=== PATIENT | female | born 1935 | race Caucasian/White ===

== ENCOUNTER 2018-02-25 12:45 | Inpatient (IN) | payer MEDICARE, BC ==
[2018-02-25] MEDS ORDERED: Albuterol 0.083% 2.5 MG/3 ML Neb Soln NEB PRN (13:30)
[2018-02-25] MEDS ORDERED: Ibuprofen 600 MG Tab PO PRN (13:30)
[2018-02-25] MEDS ORDERED: Ondansetron 4 MG Tab.DIS PO PRN (13:30)
[2018-02-25] MEDS ORDERED: Polyethylene Glycol 3350 Powder 17 GM Packet PO PRN (13:30)
[2018-02-25] MEDS ORDERED: Sodium Chloride 0.9% 10 ML Syringe FLUSH PRN (13:30)
[2018-02-25] MEDS ORDERED: guaiFENesin/Dextromethorphan 100-10 MG/5 ML Soln 10 ML Cup PO PRN (13:34)
--- NOTE | 2018-02-25 13:43 | PCM.HP ---
H&P History of Present Illness - General Date of Service: 02/25/18 Admit Problem/Dx: Admission Diagnosis/Problem Admission Diagnosis/Problem Acute bronchitis Source of Information: Patient, Provider History Limitations: Reports: No Limitations - History of Present Illness Initial Comments - Free Text/Narative: Carla initially presented to the clinic with one week of cough, shortness of breath and progressive weakness. She reports initial symptoms were mostly a mild cough which slowly has gotten worse. She is producing some yellow and/or clear sputum at times. Shortness of breath has been slowly progressive and gets worse with any sort of activity. She thinks maybe she had some subjective fevers early on. She had a mild sore throat at the onset of symptoms but no longer has this. She is becoming very weak and having more difficulty performing her ADLs. She hasn't had much to eat in the past few days but has done okay with water intake. No complaints of chest pain, abdominal pain or nausea. Bowels have been on the slow side with her last bowel movement 2 days ago. No lower extremity edema or orthopnea. Workup in the clinic revealed a clear chest x-ray other than some chronic interstitial changes. White count was mildly elevated. She was hypoxic after even a very short walk though she had normal oxygen saturations while she had been sitting for several minutes. She was sent for admission with hypoxia and presumed bronchitis. Generalized Pain Score (Numeric/FACES): 4 4 Pain Score (Numeric/FACES): 4 - Related Data Allergies/Adverse Reactions: Allergies Allergy/AdvReac Type Severity Reaction Status Date / Time Penicillins Allergy Cannot Verified 07/25/13 13:10 Remember red dye Allergy Cannot Verified 07/25/13 13:09 Remember Home Medications: Home Meds Aspirin [Adult Low Dose Aspirin EC] 81 mg PO DAILY 07/25/13 [History] Lovastatin [Mevacor] 40 mg PO DAILY 07/25/13 [History] Multivitamin with Minerals [Multiple Vitamin] 1 tab PO DAILY 07/25/13 [History] Omeprazole 40 mg PO DAILY 07/25/13 [History] Triamcinolone Acetonide [Kenalog 0.1% Crm] 1 applic TOP BID PRN 07/25/13 [ History] Zoledronic Acid in Water [Reclast] 5 mg IV ASDIRECTED 02/25/18 [History] Past Medical History Gastrointestinal History: Reports: GERD Musculoskeletal History: Reports: Back Pain, Chronic, Fracture, Osteoporosis, Other (See Below) Other Musculoskeletal History: L radial fx Endocrine/Metabolic History: Reports: Osteoporosis - Past Surgical History Head Surgeries/Procedures: Reports: None HEENT Surgical History: Reports: Cataract Surgery GI Surgical History: Reports: Hernia, Inguinal Female Surgical History: Reports: None Endocrine Surgical History: Reports: None Social & Family History - Family History Respiratory: Denies: COPD - Tobacco Use Smoking Status *Q: Current Every Day Smoker Years of Tobacco use: 60 Packs/Tins Daily: 0.4 Used Tobacco, but Quit: No Second Hand Smoke Exposure: No - Caffeine Use Caffeine Use: Reports: Coffee - Alcohol Use Days Per Week of Alcohol Use: 7 Number of Drinks Per Day: 3 Total Drinks Per Week: 21 - Recreational Drug Use Recreational Drug Use: No H&P Review of Systems - Review of Systems: Review Of Systems: See Below Free Text/Narrative: A complete 12 point review of systems was obtained. Pertinent positives and negatives are noted in the history of present illness. All other systems were reviewed and are negative except as noted. Exam - Exam Exam: See Below - Vital Signs Vital Signs: Last Vital Signs Temp 37.7 C 02/25/18 12:58 Pulse 68 02/25/18 12:58 Resp 20 02/25/18 12:58 BP 124/56 L 02/25/18 12:58 Pulse Ox 94 L 02/25/18 12:58 Weight: 58.513 kg - Exam Quality Assessment: No: Supplemental Oxygen General: Alert, Oriented, Cooperative. No: Mild Distress HEENT: No: Mucosa Moist & [place] (dry), Scleral Icterus Neck: Supple, Trachea Midline. No: Lymphadenopathy Lungs: Rhonchi (mild upper resp ). No: Normal Respiratory Effort (increased work of breathing ), Wheezing Cardiovascular: Regular Rate, Regular Rhythm GI/Abdominal Exam: Soft, Non-Tender, No Distention Extremities: No Pedal Edema. No: Increased Warmth Peripheral Pulses: 2+: Dorsalis Pedis (L), Dorsalis Pedis (R) Skin: Warm, Dry Neuro Extensive - Mental Status: Alert, Oriented x3, Nl Response to Commands Neuro Extensive - Motor, Sensory, Reflexes: CN II-XII Intact. No: Dysarthria, Abnormal Motor, Tremor Psychiatric: Alert, Normal Affect - Patient Data Imaging Impressions Last 24 hrs: CXR - mild bilateral chronic interstitial changes noted. No definite infiltrate. Heart size is normal. *Q Meaningful Use (ADM) - VTE Risk Assess *Q Each Risk Factor Represents 1 Point: Abnormal Pulmonary Function (COPD) Total Score 1 Point Risk Factors: 1 Each Risk Factor Represents 2 Points: None Total Score 2 Point Risk Factors: 0 Each Risk Factor Represents 3 Points: Age 75 Years or Greater Total Score 3 Point Risk Factors: 3 Each Risk Factor Represents 5 Points: None Total Score 5 Point Risk Factors: 0 Venous Thromboembolism Risk Factor Score *Q: 4 - Problem List (1) Acute bronchitis SNOMED Code(s): 29681490 ICD Code: J20.9 - ACUTE BRONCHITIS, UNSPECIFIED Status: Acute Current Visit: Yes Qualifiers: Bronchitis organism: unspecified organism Qualified Code(s): J20.9 - Acute bronchitis, unspecified (2) Acute respiratory failure with hypoxia SNOMED Code(s): 40983693, 410098756 ICD Code: J96.01 - ACUTE RESPIRATORY FAILURE WITH HYPOXIA Status: Acute Current Visit: Yes (3) Tobacco dependence SNOMED Code(s): 90360215 ICD Code: F17.200 - NICOTINE DEPENDENCE, UNSPECIFIED, UNCOMPLICATED Status : Chronic Current Visit: Yes Problem List Initiated/Reviewed/Updated: Yes Orders Last 24hrs: Active Orders 24 hr Category Date Time Status Patient Status [ADT] Routine ADT 02/25/18 13:30 Ordered Antiembolic Devices [RC] .Routine Care 02/25/18 13:30 Ordered Dietary Supplements [RC] BIDMEALS Care 02/25/18 13:35 Ordered Intake and Output [RC] QSHIFT Care 02/25/18 13:31 Ordered Notify Provider Vital Signs [RC] ASDIRECTED Care 02/25/18 13:31 Ordered Oxygen Therapy [RC] PRN Care 02/25/18 13:30 Ordered Peripheral IV Care [RC] . DIRECTED Care 02/25/18 13:32 Ordered RT Aerosol Therapy [RC] ASDIRECTED Care 02/25/18 13:33 Ordered Up With Assistance [RC] ASDIRECTED Care 02/25/18 13:30 Ordered VTE/DVT Education [RC] Per Unit Routine Care 02/25/18 13:30 Ordered Vital Signs [RC] Q4H Care 02/25/18 13:30 Ordered Regular Diet [DIET] Diet 02/25/18 Dinner Ordered BASIC METABOLIC PANEL,BMP [CHEM] AM Lab 02/26/18 05:11 Ordered CBC W/O DIFF,HEMOGRAM [HEME] AM Lab 02/26/18 05:11 Ordered CULTURE RESPIRATORY + SMEAR [RM] Routine Lab 02/25/18 13:30 Ordered Acetaminophen [Tylenol] Med 02/25/18 13:30 Ordered 650 mg PO Q4H PRN Albuterol [Proventil Neb Soln] Med 02/25/18 13:30 Ordered 2.5 mg NEB Q4H PRN Albuterol/Ipratropium [DuoNeb 3.0-0.5 MG/3 ML] Med 02/25/18 16:00 Ordered 3 ml NEB QID Aspirin [Halfprin] Med 02/26/18 09:00 Ordered 81 mg PO DAILY Azithromycin [Zithromax] Med 02/26/18 09:00 Ordered 250 mg PO DAILY Azithromycin [Zithromax] 500 mg Med 02/25/18 13:34 Ordered Sodium Chloride 0.9% [Normal Saline] 250 ml IV ONETIME Benzonatate [Tessalon Perles] Med 02/25/18 13:34 Ordered 100 mg PO TID PRN Dextromethorphan/guaiFENesin [Robitussin DM] Med 02/25/18 13:34 Ordered 10 ml PO Q4H PRN Docusate Sodium/Sennosides [Senna Plus] Med 02/25/18 13:30 Ordered 1 tab PO BID PRN Ibuprofen [Motrin] Med 02/25/18 13:30 Ordered 600 mg PO Q6H PRN Lovastatin [Mevacor] Med 02/26/18 09:00 Ordered 40 mg PO DAILY Multivitamin with Minerals [Multiple Vitamin] Med 02/26/18 09:00 Ordered 1 tab PO DAILY Ondansetron [Zofran ODT] Med 02/25/18 13:30 Ordered 4 mg PO Q6H PRN Pantoprazole [ProTONIX] Med 02/26/18 09:00 Ordered 40 mg PO DAILY Polyethylene Glycol 3350 [MiraLAX] Med 02/25/18 13:30 Ordered 17 gm PO DAILY PRN Sodium Chloride 0.9% [Normal Saline] 1,000 ml Med 02/25/18 13:45 Ordered IV ASDIRECTED Sodium Chloride 0.9% [Saline Flush] Med 02/25/18 13:30 Ordered 10 ml FLUSH ASDIRECTED PRN cefTRIAXone [Rocephin] 1 gm Med 02/25/18 13:45 Ordered Sodium Chloride 0.9% [Normal Saline] 50 ml IV Q24H Peripheral IV Insertion Adult [OM.PC] Routine Oth 02/25/18 13:30 Ordered Sequential Compression Device [OM.PC] Per Unit Routine Oth 02/25/18 13:31 Ordered Resuscitation Status Routine Resus Stat 02/25/18 13:30 Ordered Medication Orders Acetaminophen (Tylenol) 650 mg PO Q4H PRN PRN Reason: Pain (Mild 1-3)/fever Albuterol (Proventil Neb Soln) 2.5 mg NEB Q4H PRN PRN Reason: Shortness Of Breath/wheezing Albuterol/Ipratropium (Duoneb 3.0-0.5 Mg/3 Ml) 3 ml NEB QID JOSE Azithromycin (Zithromax) 250 mg PO DAILY JOSE Benzonatate (Tessalon Perles) 100 mg PO TID PRN PRN Reason: Cough Guaifenesin/Dextromethorphan (Robitussin Dm) 10 ml PO Q4H PRN PRN Reason: Cough Azithromycin 500 mg/ Sodium (Chloride) 250 mls @ 250 mls/hr IV ONETIME ONE Stop: 02/25/18 14:33 Ceftriaxone Sodium 1 gm/ (Sodium Chloride) 50 mls @ 100 mls/hr IV Q24H JOSE Sodium Chloride (Normal Saline) 1,000 mls @ 125 mls/hr IV ASDIRECTED JOSE Ibuprofen (Motrin) 600 mg PO Q6H PRN PRN Reason: Muscle pain or fever Ondansetron HCl (Zofran Odt) 4 mg PO Q6H PRN PRN Reason: Nausea able to take PO Polyethylene Glycol (Miralax) 17 gm PO DAILY PRN PRN Reason: Constipation Senna/Docusate Sodium (Senna Plus) 1 tab PO BID PRN PRN Reason: Constipation Sodium Chloride (Saline Flush) 10 ml FLUSH ASDIRECTED PRN PRN Reason: Keep Vein Open Assessment/Plan Comment:: ASSESSMENT AND PLAN - Acute bronchitis with hypoxic respiratory failure - chest x-ray did not suggest pneumonia. Current symptoms include cough, shortness of breath and dyspnea with any exertion. She has hypoxic with any activity and not safe for outpatient management. No evidence for sepsis. No recent antibiotics. she has mild leukocytosis on laboratory testing. -Ceftriaxone and azithromycin -Hold on steroids at this time with no wheezing -Scheduled and as needed nebulizers -Symptomatic cough management -Sputum culture if able Tobacco dependence - patient has been slowly decreasing her intake and did quit for 1 year several years ago but has not been abstinent. -Continue to encourage cessation Maintenance issues - - DVT prophylaxis - mechanical - GI prophylaxis - not indicated - Nutrition - regular - Avila catheter - not indicated CODE STATUS - DNR/DNI Admission justification - the patient will be admitted to inpatient status with the idea that her hospital stay will span at least 2 midnights but that she can be safely treated and discharged and 96 hours or less of the disease runs its usual course. Disposition - I would anticipate discharge to home, possibly with home care after the hospital stay Primary care physician - Dr. Fahad Amin M.D.
[2018-02-25] MEDS: Sodium Chloride 0.9% 1,000 ML IV SCH ×2 (13:56→23:46)
[2018-02-25] MEDS: cefTRIAXone 1 GM in Sodium Chloride 0.9% 50 ML IV SCH (14:49)
[2018-02-25] MEDS ORDERED: Azithromycin 500 MG in Sodium Chloride 0.9% 250 ML IV ONE (15:00)
[2018-02-25] MEDS: Albuterol/Ipratropium 3.0-0.5 MG/3 ML Neb Soln NEB SCH ×2 (15:21→21:22)
[2018-02-25] MEDS: Benzonatate 100 MG Cap PO PRN (17:16)
[2018-02-25] MEDS: Acetaminophen 325 MG Tab PO PRN (21:26)
[2018-02-26] MEDS: Albuterol/Ipratropium 3.0-0.5 MG/3 ML Neb Soln NEB SCH ×4 (07:12→21:22)
[2018-02-26] MEDS: Sodium Chloride 0.9% 1,000 ML IV SCH (07:54)
[2018-02-26] MEDS: Aspirin 81 MG Tab.EC PO SCH (08:01)
[2018-02-26] MEDS: Multivitamins with Iron/Calcium/Folic Acid/Minerals Tab PO SCH (08:01)
[2018-02-26] MEDS: Azithromycin 250 MG Tab PO SCH (08:01)
[2018-02-26] MEDS: Pantoprazole 40 MG Tab.CR PO SCH (08:01)
[2018-02-26] MEDS ORDERED: LOVASTATIN 40 MG PO SCH (09:00)
[2018-02-26] MEDS ORDERED: Non-Formulary Medication 1 Each (Multivitamin With Minerals [Multiple Vitamin] 1 TAB) PO SCH (09:00)
--- NOTE | 2018-02-26 11:45 | PCM.PN ---
- General Info Date of Service: 02/26/18 Subjective Update: There were no acute events overnight. Patient did have a low-grade fever elevation. She feels less short of breath today but still is coughing a fair amount. Still does get short of breath with activity. She has been able to ambulate to the bathroom and back. She has not required any supplemental oxygen. She has some left-sided chest pain with coughing. Appetite not great but a little better today. Gram stain on the sputum sample revealed some gram- positive cocci but identification is pending. Functional Status: Reports: Pain Controlled, Tolerating Diet - Review of Systems General: Reports: Fever, Weakness Pulmonary: Reports: Shortness of Breath, Cough - Patient Data Vitals - Most Recent: Last Vital Signs Temp 37.0 C 02/26/18 11:26 Pulse 64 02/26/18 11:26 Resp 16 02/26/18 11:26 BP 136/60 02/26/18 11:26 Pulse Ox 90 L 02/26/18 11:26 Weight - Most Recent: 58.513 kg I&O - Last 24 Hours: Intake & Output 02/25/18 02/26/18 02/26/18 22:59 06:59 14:59 Intake Total 1056 1358 120 Balance 1056 1358 120 Lab Results Last 24 Hours: Laboratory Results - last 24 hr 02/26/18 02/26/18 Range/Units 05:00 05:11 WBC 10.0 (4.5-11.0) K/uL RBC 3.37 (3.30-5.50) M/uL Hgb 10.4 L (12.0-15.0) g/dL Hct 31.3 L (36.0-48.0) % MCV 93 (80-98) fL MCH 31 (27-31) pg MCHC 33 (32-36) % Plt Count 264 (150-400) K/uL Sodium 132 L (140-148) mmol/L Potassium 3.8 (3.6-5.2) mmol/L Chloride 101 (100-108) mmol/L Carbon Dioxide 22 (21-32) mmol/L Anion Gap 12.8 (5.0-14.0) mmol/L BUN 9 (7-18) mg/dL Creatinine 0.7 (0.6-1.0) mg/dL Est Cr Clr Drug Dosing 50.37 mL/min Estimated GFR (MDRD) > 60 (>60) Glucose 95 (74-106) mg/dL Calcium 8.5 (8.5-10.1) mg/dL Abdoulaye Results Last 24 Hours: Microbiology 02/25/18 19:18 Gram Stain - Final Sputum - Expectorated Med Orders - Current: Current Medications Acetaminophen (Tylenol) 650 mg PO Q4H PRN PRN Reason: Pain (Mild 1-3)/fever Last Admin: 02/25/18 21:26 Dose: 650 mg Albuterol (Proventil Neb Soln) 2.5 mg NEB Q4H PRN PRN Reason: Shortness Of Breath/wheezing Albuterol/Ipratropium (Duoneb 3.0-0.5 Mg/3 Ml) 3 ml NEB QIDRT [facility] Last Admin: 02/26/18 10:53 Dose: 3 ml Aspirin (Halfprin) 81 mg PO DAILY [facility] Last Admin: 02/26/18 08:01 Dose: 81 mg Azithromycin (Zithromax) 250 mg PO DAILY [facility] Last Admin: 02/26/18 08:01 Dose: 250 mg Benzonatate (Tessalon Perles) 100 mg PO TID PRN PRN Reason: Cough Last Admin: 02/25/18 17:16 Dose: 100 mg Ceftriaxone Sodium 1 gm/ (Sodium Chloride) 50 mls @ 100 mls/hr IV Q24H [facility] Last Admin: 02/25/18 14:49 Dose: 100 mls/hr Sodium Chloride (Normal Saline) 1,000 mls @ 125 mls/hr IV ASDIRECTED [facility] Last Admin: 02/26/18 07:54 Dose: 125 mls/hr Ibuprofen (Motrin) 600 mg PO Q6H PRN PRN Reason: Muscle pain or fever Lovastatin (Mevacor) 40 mg PO DAILY [facility] Last Admin: 02/26/18 08:01 Dose: 40 mg Multivitamins/Minerals (Thera M Plus) 1 tab PO DAILY [facility] Last Admin: 02/26/18 08:01 Dose: 1 tab Ondansetron HCl (Zofran Odt) 4 mg PO Q6H PRN PRN Reason: Nausea able to take PO Pantoprazole Sodium (Protonix) 40 mg PO ACBREAKFAST [facility] Last Admin: 02/26/18 08:01 Dose: 40 mg Polyethylene Glycol (Miralax) 17 gm PO DAILY PRN PRN Reason: Constipation Senna/Docusate Sodium (Senna Plus) 1 tab PO BID PRN PRN Reason: Constipation Sodium Chloride (Saline Flush) 10 ml FLUSH ASDIRECTED PRN PRN Reason: Keep Vein Open Discontinued Medications Guaifenesin/Dextromethorphan (Robitussin Dm) 10 ml PO Q4H PRN PRN Reason: Cough Last Admin: 02/25/18 17:16 Dose: 10 ml Azithromycin 500 mg/ Sodium (Chloride) 250 mls @ 250 mls/hr IV ONETIME ONE Stop: 02/25/18 15:59 Last Admin: 02/25/18 15:43 Dose: 250 mls/hr - Exam Quality Assessment: No: Supplemental Oxygen General: Alert, Oriented, Cooperative, No Acute Distress Lungs: Clear to Auscultation, Normal Respiratory Effort, Other (coughs with deep breathing ) Cardiovascular: Regular Rate, Regular Rhythm Extremities: No Pedal Edema Psy/Mental Status: Alert, Normal Affect - Problem List & Annotations (1) Acute bronchitis SNOMED Code(s): 90210038 Code(s): J20.9 - ACUTE BRONCHITIS, UNSPECIFIED Status: Acute Current Visit: Yes Qualifiers: Bronchitis organism: unspecified organism Qualified Code(s): J20.9 - Acute bronchitis, unspecified (2) Acute respiratory failure with hypoxia SNOMED Code(s): 61155046, 563473039 Code(s): J96.01 - ACUTE RESPIRATORY FAILURE WITH HYPOXIA Status: Acute Current Visit: Yes (3) Tobacco dependence SNOMED Code(s): 22649790 Code(s): F17.200 - NICOTINE DEPENDENCE, UNSPECIFIED, UNCOMPLICATED Status: Chronic Current Visit: Yes - Problem List Review Problem List Initiated/Reviewed/Updated: Yes - My Orders Last 24 Hours: My Active Orders 02/25/18 13:30 Patient Status [ADT] Routine Antiembolic Devices [RC] .Routine Oxygen Therapy [RC] PRN Up With Assistance [RC] ASDIRECTED VTE/DVT Education [RC] Per Unit Routine Vital Signs [RC] Q4H Acetaminophen [Tylenol] 650 mg PO Q4H PRN Albuterol [Proventil Neb Soln] 2.5 mg NEB Q4H PRN Docusate Sodium/Sennosides [Senna Plus] 1 tab PO BID PRN Ibuprofen [Motrin] 600 mg PO Q6H PRN Ondansetron [Zofran ODT] 4 mg PO Q6H PRN Polyethylene Glycol 3350 [MiraLAX] 17 gm PO DAILY PRN Sodium Chloride 0.9% [Saline Flush] 10 ml FLUSH ASDIRECTED PRN Peripheral IV Insertion Adult [OM.PC] Routine Resuscitation Status Routine 02/25/18 13:31 Intake and Output [RC] QSHIFT Notify Provider Vital Signs [RC] ASDIRECTED Sequential Compression Device [OM.PC] Per Unit Routine 02/25/18 13:32 Peripheral IV Care [RC] . DIRECTED 02/25/18 13:33 RT Aerosol Therapy [RC] ASDIRECTED 02/25/18 13:34 Benzonatate [Tessalon Perles] 100 mg PO TID PRN 02/25/18 13:35 Dietary Supplements [RC] BIDMEALS 02/25/18 13:45 Sodium Chloride 0.9% [Normal Saline] 1,000 ml IV ASDIRECTED 02/25/18 14:00 cefTRIAXone [Rocephin] 1 gm Sodium Chloride 0.9% [Normal Saline] 50 ml IV Q24H 02/25/18 15:00 Albuterol/Ipratropium [DuoNeb 3.0-0.5 MG/3 ML] 3 ml NEB QIDRT 02/25/18 19:18 CULTURE RESPIRATORY + SMEAR [RM] Routine 02/25/18 Dinner Regular Diet [DIET] 02/26/18 07:30 Pantoprazole [ProTONIX] 40 mg PO ACBREAKFAST 02/26/18 09:00 Aspirin [Halfprin] 81 mg PO DAILY Azithromycin [Zithromax] 250 mg PO DAILY Lovastatin [Mevacor] 40 mg PO DAILY Multivitamins w-Iron/Ca/FA/Min [Thera M Plus] 1 tab PO DAILY 02/26/18 11:44 Convert IV to Saline Lock [OM.PC] Routine 02/27/18 05:00 CBC W/O DIFF,HEMOGRAM [HEME] Timed (1) - Plan Plan:: ASSESSMENT AND PLAN - Acute bronchitis with hypoxic respiratory failure - chronically a little better but still significant coughing spells and short of breath with activity. She has not required supplemental oxygen since she arrived. She did have a low- grade fever overnight. Cultures are pending. -Ceftriaxone and azithromycin -Hold on steroids at this time with no wheezing -Scheduled and as needed nebulizers -Symptomatic cough management -Follow-up sputum culture Tobacco dependence - patient has been slowly decreasing her intake and did quit for 1 year several years ago but has not been abstinent. -Continue to encourage cessation Maintenance issues - - DVT prophylaxis - mechanical - GI prophylaxis - not indicated - Nutrition - regular Disposition - I would anticipate discharge to home, possibly with home care after the hospital stay likely tomorrow if stable overnight, Shakir Amin M.D.
[2018-02-26] MEDS: Benzonatate 100 MG Cap PO PRN ×2 (12:09→21:43)
[2018-02-26] MEDS: cefTRIAXone 1 GM in Sodium Chloride 0.9% 50 ML IV SCH (13:36)
[2018-02-26] MEDS: Acetaminophen 325 MG Tab PO PRN (21:42)
[2018-02-27] MEDS: Benzonatate 100 MG Cap PO PRN (02:18)
[2018-02-27] MEDS: Albuterol/Ipratropium 3.0-0.5 MG/3 ML Neb Soln NEB SCH ×2 (07:24→10:35)
[2018-02-27] MEDS: Azithromycin 250 MG Tab PO SCH (08:26)
[2018-02-27] MEDS: Multivitamins with Iron/Calcium/Folic Acid/Minerals Tab PO SCH (08:26)
[2018-02-27] MEDS: Pantoprazole 40 MG Tab.CR PO SCH (08:26)
[2018-02-27] MEDS: Aspirin 81 MG Tab.EC PO SCH (08:26)
--- NOTE | 2018-02-27 11:06 | PCM.DCSUM1 ---
Discharge Summary - Hospital Course Brief History: 82-year-old female with tobacco dependence who presented with cough, shortness of breath and weakness. She was admitted from the clinic for management of acute bronchitis with mild hypoxia and generalized weakness. Diagnosis: Stroke: No - Discharge Data Discharge Date: 02/27/18 Discharge Disposition: Home, [facility] Condition: Fair - Discharge Diagnosis/Problem(s) (1) Acute bronchitis SNOMED Code(s): 83437418 ICD Code: J20.9 - ACUTE BRONCHITIS, UNSPECIFIED Status: Acute Qualifiers: Bronchitis organism: unspecified organism Qualified Code(s): J20.9 - Acute bronchitis, unspecified (2) Acute respiratory failure with hypoxia SNOMED Code(s): 28345290, 383881980 ICD Code: J96.01 - ACUTE RESPIRATORY FAILURE WITH HYPOXIA Status: Acute (3) Tobacco dependence SNOMED Code(s): 67441836 ICD Code: F17.200 - NICOTINE DEPENDENCE, UNSPECIFIED, UNCOMPLICATED Status : Chronic - Patient Summary/Data Hospital Course: Carla presented to the clinic with cough, shortness of breath and weakness. Workup in the clinic was consistent with acute bronchitis and she did have hypoxia after a short period of ambulation. She was admitted to the hospital for further management. She was started on ceftriaxone and azithromycin at the time of admission. I did not start steroids because she was not wheezing. Over the first 24 hours there was mild improvement. She was not hypoxic and did not require any supplemental oxygen. She remained weak and fatigued but otherwise was clinically stable. She did have a low-grade fever about 24 hours after admission but otherwise has not been febrile. From day 1 today to which was the day of discharge the patient has had additional clinical improvement. She is feeling less short of breath and has been able to ambulate to the bathroom and back and take a shower without severe shortness of breath. She does have a fair amount of coughing with sputum and some of the coughing spells to cause increased shortness of breath. Sputum culture did not grow out any specific bacteria. White count has been normal. She is a little weak but otherwise safer hospital discharge. She was interested in home health care. She will be given a prescription for azithromycin and cefdinir as outlined in the medication section. We did also briefly discussed smoking cessation but she doesn't seem to have a lot of interest in quitting at this time. She will be following up early next week. - Patient Instructions Diet: Regular Diet as Tolerated Activity: As Tolerated Showering/Bathing: May Shower Notify Provider of: Fever, Increased Pain, Nausea and/or Vomiting Other/Special Instructions: 1. You were in the hospital for management of acute bronchitis with low oxygen numbers. Your condition has been improving with antibiotic therapy. I recommend additional antibiotic treatment with 2 different antibiotics. You should take azithromycin 250 mg once daily in the morning for 3 more doses. Your next dose is due tomorrow morning. You should also take cefdinir 300 mg capsules twice daily. Your next dose is due tonight. To help calm down her cough you may use the Tessalon Perles for which I provided a prescription. You can use these 3 times daily as needed. You can also use either a cough syrup with guaifenesin or a plain guaifenesin tablet to help loosen up the mucus and make clearing your mucus from your bronchial tubes easier. 2. Continue your other home medications as previously prescribed. 3. Follow up with Dr. Vásquez early next week. 4. Seek medical attention if you have fever greater than 101, severe shortness of breath or profound weakness that limit your activities of daily living. - Discharge Plan *PRESCRIPTION DRUG MONITORING PROGRAM REVIEWED*: Not Applicable *COPY OF PRESCRIPTION DRUG MONITORING REPORT IN PATIENT BECK: Not Applicable Prescriptions/Med Rec: Azithromycin [Zithromax] 250 mg PO DAILY #3 tablet Benzonatate 100 mg PO TID PRN #30 capsule PRN Reason: Cough Cefdinir 300 mg PO BID #10 capsule Home Medications: Home Meds Aspirin [Adult Low Dose Aspirin EC] 81 mg PO DAILY 07/25/13 [History] Lovastatin [Mevacor] 40 mg PO DAILY 07/25/13 [History] Multivitamin with Minerals [Multiple Vitamin] 1 tab PO DAILY 07/25/13 [History] Omeprazole 40 mg PO DAILY 07/25/13 [History] Triamcinolone Acetonide [Kenalog 0.1% Crm] 1 applic TOP BID PRN 07/25/13 [ History] Zoledronic Acid in Water [Reclast] 5 mg IV ASDIRECTED 02/25/18 [History] Azithromycin [Zithromax] 250 mg PO DAILY #3 tablet 02/27/18 [Rx] Benzonatate 100 mg PO TID PRN #30 capsule 02/27/18 [Rx] Cefdinir 300 mg PO BID #10 capsule 02/27/18 [Rx] Oxygen Therapy Mode: Room Air Patient Handouts: Cefdinir capsules, Acute Bronchitis, Adult, [id number], Azithromycin tablets Referrals: Michael Vásquez MD [Primary Care Provider] - (f/u in 5 days - f/u hospital stay for bronchitis ) - Discharge Summary/Plan Comment DC Time >30 min.: Yes (40 - coordinating home care) - Patient Data Vitals - Most Recent: Last Vital Signs Temp 36.9 C 02/27/18 07:45 Pulse 85 02/27/18 10:35 Resp 18 02/27/18 07:45 BP 131/52 L 02/27/18 07:45 Pulse Ox 92 L 02/27/18 10:35 Weight - Most Recent: 58.513 kg I&O - Last 24 hours: Intake & Output 02/26/18 02/27/18 02/27/18 22:59 06:59 14:59 Intake Total 1177 760 Balance 1177 760 Lab Results - Last 24 hrs: Laboratory Results - last 24 hr 02/27/18 Range/Units 05:00 WBC 9.8 (4.5-11.0) K/uL RBC 3.29 L (3.30-5.50) M/uL Hgb 10.6 L (12.0-15.0) g/dL Hct 30.5 L (36.0-48.0) % MCV 93 (80-98) fL MCH 32 H (27-31) pg MCHC 35 (32-36) % Plt Count 259 (150-400) K/uL ZAINAB Results - Last 24 hrs: Microbiology 02/25/18 19:18 Gram Stain - Final Sputum - Expectorated Respiratory Culture - Preliminary NORMAL RESPIRATORY PATTIE 1 DAY Med Orders - Current: Current Medications Acetaminophen (Tylenol) 650 mg PO Q4H PRN PRN Reason: Pain (Mild 1-3)/fever Last Admin: 02/26/18 21:42 Dose: 650 mg Albuterol (Proventil Neb Soln) 2.5 mg NEB Q4H PRN PRN Reason: Shortness Of Breath/wheezing Albuterol/Ipratropium (Duoneb 3.0-0.5 Mg/3 Ml) 3 ml NEB QIDRT JOSE Last Admin: 02/27/18 10:35 Dose: 3 ml Aspirin (Halfprin) 81 mg PO DAILY [facility] Last Admin: 02/27/18 08:26 Dose: 81 mg Azithromycin (Zithromax) 250 mg PO DAILY [facility] Last Admin: 02/27/18 08:26 Dose: 250 mg Benzonatate (Tessalon Perles) 100 mg PO TID PRN PRN Reason: Cough Last Admin: 02/27/18 02:18 Dose: 100 mg Ceftriaxone Sodium 1 gm/ (Sodium Chloride) 50 mls @ 100 mls/hr IV Q24H [facility] Last Admin: 02/26/18 13:36 Dose: 100 mls/hr Ibuprofen (Motrin) 600 mg PO Q6H PRN PRN Reason: Muscle pain or fever Last Admin: 02/26/18 17:03 Dose: 600 mg Lovastatin (Mevacor) 40 mg PO DAILY [facility] Last Admin: 02/27/18 08:26 Dose: 40 mg Multivitamins/Minerals (Thera M Plus) 1 tab PO DAILY [facility] Last Admin: 02/27/18 08:26 Dose: 1 tab Ondansetron HCl (Zofran Odt) 4 mg PO Q6H PRN PRN Reason: Nausea able to take PO Pantoprazole Sodium (Protonix) 40 mg PO ACBREAKFAST [facility] Last Admin: 02/27/18 08:26 Dose: 40 mg Polyethylene Glycol (Miralax) 17 gm PO DAILY PRN PRN Reason: Constipation Senna/Docusate Sodium (Senna Plus) 1 tab PO BID PRN PRN Reason: Constipation Sodium Chloride (Saline Flush) 10 ml FLUSH ASDIRECTED PRN PRN Reason: Keep Vein Open Discontinued Medications Guaifenesin/Dextromethorphan (Robitussin Dm) 10 ml PO Q4H PRN PRN Reason: Cough Last Admin: 02/25/18 17:16 Dose: 10 ml Azithromycin 500 mg/ Sodium (Chloride) 250 mls @ 250 mls/hr IV ONETIME ONE Stop: 02/25/18 15:59 Last Admin: 02/25/18 15:43 Dose: 250 mls/hr Sodium Chloride (Normal Saline) 1,000 mls @ 125 mls/hr IV ASDIRECTED [facility] Last Admin: 02/26/18 07:54 Dose: 125 mls/hr - Exam Quality Assessment: Denies: Supplemental Oxygen General: Reports: Alert, Oriented, Cooperative, No Acute Distress Lungs: Reports: Clear to Auscultation, Normal Respiratory Effort Cardiovascular: Reports: Regular Rate, Regular Rhythm GI/Abdominal Exam: Soft, No Distention Skin: Reports: Warm, Dry Psy/Mental Status: Reports: Alert, Normal Affect
[2018-02-27 11:14] VITALS: BP 123/50
== END 2018-02-27 12:33 | disposition home health service (06) | DRG 189 ==
LOC: JP.MS 12:45
PROVIDERS: ADMIT Internal Medicine; ATTEND Internal Medicine
DX: J96.01 Acute respiratory failure with hypoxia (principal); Z66 Do not resuscitate; R53.1 Weakness; F17.210 Nicotine dependence, cigarettes, uncomplicated; K21.9 Gastro-esophageal reflux disease without esophagitis; M81.0 Age-related osteoporosis without current pathological fracture; Z79.82 Long term (current) use of aspirin; Z88.0 Allergy status to penicillin; Z91.048 Other nonmedicinal substance allergy status
CPT/HCPCS: 36415; 80048; 85027; 87070; 87205; 94640; A9270-GY; J0456; J0696; J7030; J7050; J7620-GY

== ENCOUNTER 2020-06-23 11:31 | Emergency (ER) | payer BC, MEDICARE ==
--- NOTE | 2020-06-23 13:19 | EDM.PDOC ---
ED HPI GENERAL MEDICAL PROBLEM - General Chief Complaint: Headache Stated Complaint: HEADACHE SEEING DOUBLE Time Seen by Provider: 06/23/20 12:40 Source of Information: Reports: Patient, Family History Limitations: Reports: No Limitations - History of Present Illness INITIAL COMMENTS - FREE TEXT/NARRATIVE: 84-year-old female who has had some fairly persistent frontal headaches for the past month, mostly during the day has now started to develop some intermittent double vision. The pain seems to radiate across the forehead into the left temporal area and down into her jaw. She has seen the eye doctor, pressures were taken and an exam done and she was told everything looked okay. No fevers or chills, no cold symptoms, no nasal congestion or recent trauma such as falls. No shortness of breath or chest pain. She does not have a chronic history of headaches. Onset: Gradual Duration: Week(s): (Seems to be gradually worsening over the last 4 weeks) Location: Reports: Head Associated Symptoms: Reports: Other (No other significant symptoms other than some visual difficulties, none currently) Headache Pain Score (Numeric/FACES): 4 - Related Data Allergies Allergy/AdvReac Type Severity Reaction Status Date / Time Penicillins Allergy Cannot Verified 06/23/20 12:14 Remember red dye Allergy Cannot Verified 06/23/20 12:14 Remember Home Meds: Home Meds Aspirin [Adult Low Dose Aspirin EC] 81 mg PO DAILY 07/25/13 [History] Lovastatin [Mevacor] 40 mg PO DAILY 07/25/13 [History] Multivitamin with Minerals [Multiple Vitamin] 1 tab PO DAILY 07/25/13 [History] Omeprazole 40 mg PO DAILY 07/25/13 [History] Triamcinolone Acetonide [Kenalog 0.1% Crm] 1 applic TOP BID PRN 07/25/13 [History] Ibuprofen [Advil] 400 mg PO ASDIRECTED PRN 06/23/20 [History] Latanoprost/Pf [Latanoprost 0.005% Eye Drop] 1 drop OP BEDTIME 06/23/20 [History] Past Medical History HEENT History: Reports: Cataract, Glaucoma, Macular Degeneration Cardiovascular History: Reports: High Cholesterol Respiratory History: Reports: Bronchitis, Recurrent, Pneumonia, Recurrent Gastrointestinal History: Reports: GERD Genitourinary History: Reports: None Musculoskeletal History: Reports: Back Pain, Chronic, Fracture, Osteoporosis, Other (See Below) Other Musculoskeletal History: L radial fx. cubital tunnel left. compression fracture Endocrine/Metabolic History: Reports: Osteoporosis - Infectious Disease History Infectious Disease History: Reports: C-Difficile - Past Surgical History Head Surgeries/Procedures: Reports: None HEENT Surgical History: Reports: Cataract Surgery GI Surgical History: Reports: Hernia, Inguinal Female Surgical History: Reports: None Endocrine Surgical History: Reports: None Social & Family History - Tobacco Use Tobacco Use Status *Q: Current Every Day Tobacco User Years of Tobacco use: 50 Packs/Tins Daily: 0.5 - Caffeine Use Caffeine Use: Reports: Coffee - Recreational Drug Use Recreational Drug Use: No ED ROS GENERAL - Review of Systems Review Of Systems: See Below Constitutional: Denies: Fever, Chills HEENT: Reports: Vision Change (No blurred vision but double vision, no visual field loss) Respiratory: Denies: Shortness of Breath, Hemoptysis GI/Abdominal: Denies: Abdominal Pain, Nausea, Vomiting Skin: Reports: No Symptoms Neurological: Reports: Headache. Denies: Confusion, Dizziness, Trouble Speaking, Difficulty Walking, Gait Disturbance Psychiatric: Reports: No Symptoms - Physical Exam Exam: See Below Exam Limited By: No Limitations General Appearance: Alert, No Apparent Distress Eye Exam: Bilateral Eye: EOMI, PERRL Head Exam: Atraumatic, Other (I cannot reproduce tenderness with palpation of the temporal area or forehead) Neck: Supple, Non-Tender Respiratory/Chest: No Respiratory Distress, Lungs Clear Cardiovascular: Regular Rate, Rhythm Neuro Exam (Abbreviated): Alert, Oriented, No Motor/Sensory Deficits Psychiatric: Normal Affect, Normal Mood Skin Exam: Warm, Dry Course - Vital Signs Last Recorded V/S: Last Vital Signs Temp 97.7 F 06/23/20 12:13 Pulse 69 06/23/20 13:48 Resp 18 06/23/20 12:13 BP 157/65 H 06/23/20 13:48 Pulse Ox 98 06/23/20 12:13 - Orders/Labs/Meds Labs: Laboratory Tests 06/23/20 06/23/20 06/23/20 Range/Units 14:00 14:00 14:00 WBC 5.0 (4.5-11.0) K/uL RBC 3.82 (3.30-5.50) M/uL Hgb 11.9 L (12.0-15.0) g/dL Hct 36.4 (36.0-48.0) % MCV 95 (80-98) fL MCH 31 (27-31) pg MCHC 33 (32-36) % Plt Count 277 (150-400) K/uL Neut % (Auto) 71 H (36-66) % Lymph % (Auto) 23 L (24-44) % [place] % (Auto) 5 (2-6) % Eos % (Auto) 1 L (2-4) % Baso % (Auto) 0 (0-1) % ESR 32 H (0-25) mm/hr Sodium 133 L (140-148) mmol/L Potassium 4.3 (3.6-5.2) mmol/L Chloride 95 L (100-108) mmol/L Carbon Dioxide 27 (21-32) mmol/L Anion Gap 15.3 H (5.0-14.0) mmol/L BUN 11 (7-18) mg/dL Creatinine 0.9 (0.6-1.0) mg/dL Est Cr Clr Drug Dosing 36.94 mL/min Estimated GFR (MDRD) 60 (>60) Glucose 90 (74-106) mg/dL Calcium 9.3 (8.5-10.1) mg/dL Total Bilirubin 0.4 (0.2-1.0) mg/dL AST 20 (15-37) U/L ALT 22 (12-78) U/L Alkaline Phosphatase 75 (46-116) U/L Total Protein 6.8 (6.4-8.2) g/dL Albumin 3.6 (3.4-5.0) g/dL Globulin 3.2 (2.3-3.5) g/dL Albumin/Globulin Ratio 1.1 L (1.2-2.2) - Re-Assessments/Exams Free Text/Narrative Re-Assessment/Exam: 06/23/20 13:18 CT of the head without contrast was ordered. 06/23/20 14:[address] is negative, patient was asymptomatic. CBC, CMP and sed rate were obtained and results will be sent to Dr. Vásquez for follow-up, as she may need more specialized imaging or temporal artery biopsy if sed rate is elevated. 06/24/20 11:23 Labs are reassuring, sed rate is only 32 which is just barely above normal and would be expected to be significantly elevated with temporal arteritis. She is going to increase ibuprofen to twice daily for the next several days and see if she can break this headache over the next several days. Departure - Departure Time of Disposition: 14:18 Disposition: Home, Self-Care 01 Clinical Impression: Generalized headaches - Discharge Information Instructions: General Headache Without Cause, Rchi-[id number] Referrals: Michael Vásquez MD [Primary Care Provider] - Forms: ED Department Discharge Care Plan Goals: Recheck with Dr. Vásquez in the next week to discuss lab results and possible further evaluation with imaging or other testing if not improving with Advil twice daily instead of once daily. Return to the emergency room at any time if worsening or concerns. Sepsis Event Note (ED) - Evaluation Sepsis Screening Result: No Definite Risk
--- NOTE | 2020-06-23 13:32 | CT ---
Head wo Cont CLINICAL HISTORY: Headaches, vision changes COMPARISON: None TECHNIQUE: Transverse scans were obtained from the base of the skull through the vertex without IV contrast on a multislice, multidetector CT scanner. Auto dosage reduction and iterative reconstruction techniques employed. FINDINGS: No focal abnormal parenchymal density is identified. There is no mass effect, hemorrhage, or extraaxial collection. The basal cisterns and sulci over the convexities are prominent. The ventricles are prominent. IMPRESSION: Moderate age-related atrophy. No acute intracranial process
[2020-06-23 13:49] VITALS: BP 157/65; PULSE 69
== END 2020-06-23 14:22 | disposition home or self-care (01) ==
LOC: JP.ED 11:31
DX: R51.9 Headache, unspecified (principal); K21.9 Gastro-esophageal reflux disease without esophagitis; Z88.0 Allergy status to penicillin; Z91.048 Other nonmedicinal substance allergy status; Z79.899 Other long term (current) drug therapy; Z79.82 Long term (current) use of aspirin; Z72.0 Tobacco use
CPT/HCPCS: 36415; 70450; 70450-26; 80053; 85025; 85651; 99282; 99284-25

== ENCOUNTER 2020-07-13 06:54 | Day surgery (SDC) | payer MEDICARE ==
[~2020-07-13 06:54] MED LIST: Lidocaine 1% with EPINEPHrine 1:100,000 50 ML MDV ONE
[2020-07-13] MEDS ORDERED: Propofol 200 MG/20 ML SDV ONE (07:03)
[2020-07-13] MEDS ORDERED: fentaNYL 100 MCG/2 ML SDV ONE (07:03)
[2020-07-13] MEDS ORDERED: Acetaminophen 500 MG Tab PO ONE (07:15)
[2020-07-13] MEDS ORDERED: Dextrose 5%-Lactated Ringers 1,000 ML IV SCH (07:30)
[2020-07-13] MEDS ORDERED: ceFAZolin 1 GM in Premix Bag 1 BAG IV ONE (08:30)
[2020-07-13] MEDS ORDERED: Midazolam 1 MG/ML 2 ML SDV ONE (08:32)
[2020-07-13 11:52] VITALS: BP 165/73; PULSE 79
--- NOTE | 2020-07-28 15:30 | OR ---
DATE OF PROCEDURE: 07/13/2020 SURGEON: Karthik Mariee MD PREOPERATIVE DIAGNOSIS: Rule out temporal arteritis. POSTOPERATIVE DIAGNOSIS: Rule out temporal arteritis. OPERATIVE PROCEDURE: Bilateral temporal artery biopsies ([id number] x2). ANESTHESIA: Local plus IV sedation. INDICATION FOR PROCEDURE: The patient presents with some headaches as well as an elevated sedimentation rate and tenderness over the temporal artery area. Plan is to proceed with bilateral temporal artery biopsies for evaluation of possible temporal arteritis. Potential risks including bleeding and infection were reviewed, and the patient wishes to proceed. DETAILS OF PROCEDURE: The patient was taken to the operating room, placed in a supine position. IV sedation was administered, after which small areas were shaved over the temporal arteries and those areas were prepped and draped on each side. Then the skin and subcutaneous tissue were anesthetized with 1% lidocaine mixed with Marcaine. Linear incision was made over the course of the artery, which could be palpated. On each side, 3 cm of artery was removed and then we suture ligated with 5-0 Vicryl stitch, which was also used to close the subcutaneous tissue and the skin with subcuticular stitch and a surgical glue was then applied over the incisions. The patient will be following up with Dr. Vásquez on 07/16/2020. It is notable that the arteries were both quite thickened and there was a fair bit of soft tissue edema suggestive of possible temporal arteritis being present. Karthik Mariee MD /[id number]
== END 2020-07-13 10:30 | disposition home or self-care (01) ==
LOC: JP.SDS 06:54
PROVIDERS: ATTEND Surgery
DX: G50.1 Atypical facial pain (principal); I77.89 Other specified disorders of arteries and arterioles; E78.5 Hyperlipidemia, unspecified; Z88.0 Allergy status to penicillin; Z91.041 Radiographic dye allergy status
CPT/HCPCS: 37609; 88305; 88313; A9270; J0690; J2250; J2704; J3010; J7121

== ENCOUNTER 2020-12-19 12:24 | Emergency (ER) | payer MEDICARE ==
[2020-12-19 13:36] VITALS: BP 188/82; PULSE 94
[2020-12-19] MEDS ORDERED: Meclizine 25 MG Tab PO ONE (13:44)
--- NOTE | 2020-12-19 13:49 | EDM.PDOC ---
ED HPI GENERAL MEDICAL PROBLEM - General Chief Complaint: General Stated Complaint: DIZZY Time Seen by Provider: 12/19/20 13:35 Source of Information: Reports: Patient, Family, Old Records History Limitations: Reports: No Limitations - History of Present Illness INITIAL COMMENTS - FREE TEXT/NARRATIVE: 85 yo female presents with episodes of vertigo today associated with changes in head position. She is at the time of my exam asymptomatic. Sx's recur with associated spinning sensation and nausea. Had had similar sx's about 6 yrs ago and was taught the Nylan Barany maneuvers. She tried to repeat these maneuvers today without success. Is here with her daughter. Onset: Today, Sudden Onset Date: 12/19/20 Duration: Minutes:, Resolved Prior to Arrival Location: Reports: Head Quality: Reports: Other (no pain) Severity: Moderate (dizziness when she turns her head) Improves with: Reports: Other (maintaining head position) Worsens with: Reports: Movement (of her head) Context: Reports: Other (see HPI) Associated Symptoms: Reports: Nausea/Vomiting (no vomiting). Denies: Diaphoresis, Fever/Chills, Headaches Treatments INSPECTOR ADVANCED COMPOSITE: Reports: Other (see below) (none) - Related Data Allergies Allergy/AdvReac Type Severity Reaction Status Date / Time iodine Allergy Cannot Verified 12/19/20 13:56 Remember Penicillins Allergy Rash Verified 12/19/20 13:56 red dye Allergy Cannot Verified 12/19/20 13:56 Remember Home Meds: Home Meds Aspirin [Adult Low Dose Aspirin EC] 81 mg PO DAILY 07/25/13 [History] Lovastatin [Mevacor] 40 mg PO DAILY 07/25/13 [History] Multivitamin with Minerals [Multiple Vitamin] 1 tab PO DAILY 07/25/13 [History] Omeprazole 40 mg PO DAILY 07/25/13 [History] Triamcinolone Acetonide [Kenalog 0.1% Crm] 1 applic TOP BID PRN 07/25/13 [History] Ibuprofen [Advil] 400 mg PO ASDIRECTED PRN 06/23/20 [History] Latanoprost/Pf [Latanoprost 0.005% Eye Drop] 1 drop EYEBOTH BEDTIME 06/23/20 [History] Calcium Carb, Citrate/Vit D3 [Calcium + D3 ER Tablet] 1 tab PO BID 07/13/20 [History] Meclizine [Antivert] 25 mg PO Q6H PRN #60 tab.chew 12/19/20 [Rx] predniSONE 7.5 mg PO DAILY 12/19/20 [History] Past Medical History HEENT History: Reports: Cataract, Glaucoma, Macular Degeneration Cardiovascular History: Reports: High Cholesterol Respiratory History: Reports: Bronchitis, Recurrent, Pneumonia, Recurrent Gastrointestinal History: Reports: GERD Genitourinary History: Reports: None [employer] History: Reports: Musculoskeletal History: Reports: Back Pain, Chronic, Fracture, Osteoporosis, Other (See Below) Other Musculoskeletal History: L radial fx. cubital tunnel left. compression fracture Endocrine/Metabolic History: Reports: Osteoporosis - Infectious Disease History Infectious Disease History: Reports: C-Difficile - Past Surgical History Head Surgeries/Procedures: Reports: None HEENT Surgical History: Reports: Cataract Surgery GI Surgical History: Reports: Colonoscopy, Hernia, Inguinal Endocrine Surgical History: Reports: None Musculoskeletal Surgical History: Reports: Other (See Below) Other Musculoskeletal Surgeries/Procedures:: left knee surgery, right knee patella fracture Social & Family History - Caffeine Use Caffeine Use: Reports: Coffee ED ROS GENERAL - Review of Systems Review Of Systems: See Below Constitutional: Reports: No Symptoms HEENT: Reports: Vertigo Respiratory: Reports: No Symptoms Cardiovascular: Reports: No Symptoms Endocrine: Reports: No Symptoms GI/Abdominal: Reports: Nausea. Denies: Diarrhea, Vomiting : Reports: No Symptoms Musculoskeletal: Reports: No Symptoms Skin: Reports: No Symptoms Neurological: Reports: No Symptoms Psychiatric: Reports: No Symptoms ED EXAM, GENERAL - Physical Exam Exam: See Below Exam Limited By: No Limitations General Appearance: Alert, WD/WN, No Apparent Distress Eye Exam: Bilateral Eye: Normal Inspection, PERRL Ears: Normal External Exam, Normal Canal, Hearing Grossly Normal, Normal TMs Ear Exam: Bilateral Ear: Auricle Normal, Canal Normal, TM normal, Other (no cu rrent nystagmus) Nose: Normal Inspection, No Blood Throat/Mouth: Normal Inspection, Normal Lips, Normal Voice, No Airway Compromise Head: Atraumatic, Normocephalic Neck: Normal Inspection Respiratory/Chest: No Respiratory Distress, Lungs Clear, Normal Breath Sounds, No Accessory Muscle Use Cardiovascular: Regular Rate, Rhythm, No Edema Extremities: Normal Inspection Neurological: Alert, Oriented, CN II-XII Intact, Normal Cognition, No Motor/Sensory Deficits Psychiatric: Normal Affect, Normal Mood Skin Exam: Warm, Dry, Intact, Normal Color, No Rash Course - Vital Signs Last Recorded V/S: Last Vital Signs Temp 36.8 C 12/19/20 14:08 Pulse 94 12/19/20 14:08 Resp 18 12/19/20 14:08 BP 188/82 H 12/19/20 14:08 Pulse Ox 97 12/19/20 14:08 Orthostatic Blood Pressure [ 152/89 Standing] Orthostatic Blood Pressure [ 175/81 Sitting] Orthostatic Blood Pressure [ 188/82 Supine] - Orders/Labs/Meds Meds: Medications Discontinued Medications Generic Name Dose Route Start Last Admin Trade Name Freq PRN Reason Stop Dose Admin Meclizine HCl 25 mg 12/19/20 13:44 12/19/20 13:59 Meclizine 25 Mg Tab PO 12/19/20 13:45 25 mg ONETIME ONE Administration - Re-Assessments/Exams Free Text/Narrative Re-Assessment/Exam: 12/19/20 14:56 feels much better after meclizine, able to trigger only minimal vertigo with changes in head position now. Departure - Departure Time of Disposition: 14:57 Disposition: Home, Self-Care 01 Condition: Good Clinical Impression: BPV (benign positional vertigo) Qualifiers: Laterality: unspecified laterality Qualified Code(s): H81.10 - Benign paroxysmal vertigo, unspecified ear - Discharge Information *PRESCRIPTION DRUG MONITORING PROGRAM REVIEWED*: Not Applicable *COPY OF PRESCRIPTION DRUG MONITORING REPORT IN PATIENT BECK: Not Applicable Prescriptions: Meclizine [Antivert] 25 mg PO Q6H PRN #60 tab.chew PRN Reason: Dizziness Instructions: Benign Positional Vertigo Referrals: Michael Vásquez MD [Primary Care Provider] - Forms: ED Department Discharge Additional Instructions: Use meclizine as directed for vertigo. Recheck if meclizine does not adequately control your symptoms. Sepsis Event Note (ED) - Focused Exam Vital Signs: Vital Signs Temp Pulse Resp BP Pulse Ox 12/19/20 14:08 36.8 C 94 18 188/82 H 97 12/19/20 13:35 36.8 C 94 18 188/82 H 97
== END 2020-12-19 15:35 | disposition home or self-care (01) ==
LOC: JP.ED 12:24
DX: H81.10 Benign paroxysmal vertigo, unspecified ear (principal); E78.00 Pure hypercholesterolemia, unspecified; K21.9 Gastro-esophageal reflux disease without esophagitis; Z88.0 Allergy status to penicillin; Z91.048 Other nonmedicinal substance allergy status; Z88.8 Allergy status to other drugs, medicaments and biological substances; Z79.899 Other long term (current) drug therapy
CPT/HCPCS: 99283; A9270

== ENCOUNTER 2021-07-09 13:58 | Emergency (ER) | payer MEDICARE ==
[2021-07-09] MEDS ORDERED: Sodium Chloride 0.9% 10 ML Syringe FLUSH PRN (14:45)
[2021-07-09 15:28] LABS: TROPONIN I HIGH SENSITIVITY 10.9 pg/mL (<=60.3)
[2021-07-09] MEDS ORDERED: Ketorolac 30 MG/ML SDV IVPUSH ONE (15:54)
[2021-07-09 16:05] LABS: CORONAVIRUS COVID-19 NAA NEGATIVE (NEGATIVE)
[2021-07-09 16:36] VITALS: BP 172/61; PULSE 86
[2021-07-09] MEDS ORDERED: Ketorolac 30 MG/ML SDV IM ONE (16:58)
[2021-07-09] MEDS ORDERED: predniSONE 10 MG Tab PO ONE (17:45)
== END 2021-07-09 18:04 | disposition home or self-care (01) ==
LOC: JP.ED 13:58
DX: R53.1 Weakness (principal); K21.9 Gastro-esophageal reflux disease without esophagitis; E78.00 Pure hypercholesterolemia, unspecified; J44.9 Chronic obstructive pulmonary disease, unspecified; Z87.891 Personal history of nicotine dependence; Z79.899 Other long term (current) drug therapy; Z79.82 Long term (current) use of aspirin; Z91.041 Radiographic dye allergy status; Z88.0 Allergy status to penicillin; Z20.822 Contact with and (suspected) exposure to COVID-19
CPT/HCPCS: 0241U; 36415; 70450; 80053; 80307; 81001; 83605; 84484; 85025; 85651; 93005; 93010; 96372; 99283; 99285; J1885; J7512

== ENCOUNTER 2021-12-28 08:15 | Emergency (ER) | payer MEDICARE ==
[2021-12-28] MEDS ORDERED: Albuterol/Ipratropium 3.0-0.5 MG/3 ML Neb Soln NEB ONE (09:35)
[2021-12-28 10:05] LABS: CORONAVIRUS COVID-19 NAA POSITIVE (NEGATIVE)
[2021-12-28 10:21] LABS: ESTIMATED GFR 55 mL/min (>60)
[2021-12-28 11:09] VITALS: BP 146/68; PULSE 87
== END 2021-12-28 11:10 | disposition home or self-care (01) ==
LOC: JP.ED 08:15
DX: U07.1 COVID-19 (principal); J12.82 Pneumonia due to coronavirus disease 2019; J44.9 Chronic obstructive pulmonary disease, unspecified; R53.1 Weakness; E78.00 Pure hypercholesterolemia, unspecified; F17.210 Nicotine dependence, cigarettes, uncomplicated; Z88.0 Allergy status to penicillin; Z91.041 Radiographic dye allergy status; Z79.82 Long term (current) use of aspirin; Z79.899 Other long term (current) drug therapy
CPT/HCPCS: 0241U; 36415; 71045; 80048; 83880; 85025; 93005; 94640; 99285; J7620

== ENCOUNTER 2022-01-02 10:02 | Emergency (ER) | payer MEDICARE ==
[2022-01-02 12:01] VITALS: BP 144/58; PULSE 74
== END 2022-01-02 12:13 | disposition home or self-care (01) ==
LOC: JP.ED 10:02
DX: U07.1 COVID-19 (principal); J44.9 Chronic obstructive pulmonary disease, unspecified; K21.9 Gastro-esophageal reflux disease without esophagitis; Z79.01 Long term (current) use of anticoagulants; Z72.0 Tobacco use; Z88.0 Allergy status to penicillin; Z88.8 Allergy status to other drugs, medicaments and biological substances; Z91.041 Radiographic dye allergy status; Z79.82 Long term (current) use of aspirin; Z79.899 Other long term (current) drug therapy
CPT/HCPCS: 99283

== ENCOUNTER 2022-02-05 09:39 | Inpatient (IN) | payer MEDICARE ==
[2022-02-05] MEDS ORDERED: Sodium Chloride 0.9% 10 ML Syringe FLUSH PRN (10:31)
[2022-02-05] MEDS ORDERED: Sodium Chloride 0.9% 1,000 ML IV SCH (10:45)
[2022-02-05] MEDS ORDERED: Iopamidol 755 Mg/ML 100 ML Bottle IV ONE (10:48)
[2022-02-05] MEDS ORDERED: Sodium Chloride 0.9% 10 ML Syringe FLUSH ONE (10:48)
[2022-02-05] MEDS ORDERED: Sodium Chloride 0.9% 50 ML IV ONE (10:48)
[2022-02-05] MEDS ORDERED: diphenhydrAMINE 50 MG/ML SDV IVPUSH ONE (10:55)
[2022-02-05 11:36] LABS: ESTIMATED GFR 55 mL/min (>60); TROPONIN I HIGH SENSITIVITY 9.6 pg/mL (<=60.3)
[2022-02-05] MEDS ORDERED: Ketorolac 30 MG/ML SDV IVPUSH ONE (14:00)
[2022-02-05] MEDS ORDERED: Meclizine 25 MG Tab PO PRN (16:15)
[2022-02-05] MEDS ORDERED: Ondansetron 4 MG Tab.DIS PO PRN (16:15)
[2022-02-05] MEDS ORDERED: Magnesium Hydroxide 400 MG/5 ML Susp 30 ML Cup PO PRN (16:15)
[2022-02-05] MEDS ORDERED: Ondansetron 4 MG/2 ML SDV IV PRN (16:15)
[2022-02-05] MEDS ORDERED: Albuterol 0.083% 2.5 MG/3 ML Neb Soln NEB PRN (16:15)
[2022-02-05] MEDS ORDERED: Acetaminophen 325 MG Tab PO PRN (16:15)
[2022-02-05] MEDS: hydrALAZINE 10 MG Tab PO SCH (16:39)
[2022-02-05] MEDS: Sodium Chloride 0.9% 1,000 ML IV SCH ×2 (16:41→23:50)
[2022-02-05] MEDS: Acetaminophen/Caffeine 500-65 MG Tab PO PRN (16:47)
[2022-02-05] MEDS ORDERED: Latanoprost 0.005% Ophth Soln 2.5 ML Bottle EYEBOTH SCH (21:00)
[2022-02-05] MEDS ORDERED: Melatonin 3 MG Tab PO SCH (21:00)
[2022-02-05] MEDS ORDERED: atorvaSTATin 20 MG Tab PO SCH (21:00)
[2022-02-06] MEDS: hydrALAZINE 10 MG Tab PO SCH (01:25)
[2022-02-06] MEDS ORDERED: Pantoprazole 40 MG Tab.CR PO SCH (07:30)
[2022-02-06] MEDS ORDERED: predniSONE 1 MG Tab PO SCH (08:30)
[2022-02-06] MEDS ORDERED: Hydrochlorothiazide 12.5 MG Cap PO SCH (09:00)
[2022-02-06] MEDS ORDERED: Clopidogrel 75 MG Tab PO SCH (09:00)
[2022-02-06] MEDS ORDERED: Aspirin 81 MG Tab.EC PO SCH (09:00)
[2022-02-06] MEDS ORDERED: Lisinopril 10 MG Tab PO SCH (09:00)
[2022-02-06] MEDS: Acetaminophen/Caffeine 500-65 MG Tab PO PRN (12:31)
[2022-02-06 13:31] VITALS: BP 130/68; PULSE 74
[2022-02-06] MEDS ORDERED: Latanoprost 0.005% Ophth Soln 2.5 ML Bottle EYEBOTH SCH (21:00)
== END 2022-02-06 13:33 | disposition home or self-care (01) | DRG 69 ==
LOC: JP.ED 09:39 → JP.MS 15:31
PROVIDERS: ADMIT Internal Medicine; ATTEND Internal Medicine
DX: R41.0 Disorientation, unspecified (principal); G45.9 Transient cerebral ischemic attack, unspecified; R47.01 Aphasia; E87.1 Hypo-osmolality and hyponatremia; E78.00 Pure hypercholesterolemia, unspecified; J84.10 Pulmonary fibrosis, unspecified; I10 Essential (primary) hypertension; R29.898 Other symptoms and signs involving the musculoskeletal system; Z66 Do not resuscitate; Z20.822 Contact with and (suspected) exposure to COVID-19; R40.2412 Glasgow coma scale score 13-15, at arrival to emergency department; J44.9 Chronic obstructive pulmonary disease, unspecified; K21.9 Gastro-esophageal reflux disease without esophagitis; Z86.16 Personal history of COVID-19; Z79.82 Long term (current) use of aspirin; Z79.899 Other long term (current) drug therapy; Z88.0 Allergy status to penicillin; Z91.041 Radiographic dye allergy status; Z79.01 Long term (current) use of anticoagulants
CPT/HCPCS: 36415; 70450; 70496; 70498; 71045; 80053; 81001; 83605; 84145; 84484; 85025; 93005; 96361; 96374; 96375; 99285; J1200; J1885; J3490 ×2; J7030; Q9967; U0002; 70551; 97162-GP; 97530-GP; 97535-GP; A9270-GY; J7512

== ENCOUNTER 2022-02-20 10:14 | Observation (INO) | payer MEDICARE ==
[2022-02-20] MEDS ORDERED: Sodium Chloride 0.9% 10 ML Syringe FLUSH PRN (11:18)
[2022-02-20] MEDS ORDERED: Sodium Chloride 0.9% 1,000 ML IV SCH (11:30)
[2022-02-20 11:50] LABS: ESTIMATED GFR 71 mL/min (>60)
[2022-02-20 12:11] LABS: CORONAVIRUS COVID-19 NAA NEGATIVE (NEGATIVE)
[2022-02-20] MEDS ORDERED: Magnesium Hydroxide 400 MG/5 ML Susp 30 ML Cup PO PRN (15:36)
[2022-02-20] MEDS ORDERED: Ondansetron 4 MG Tab.DIS PO PRN (15:36)
[2022-02-20] MEDS ORDERED: Ondansetron 4 MG/2 ML SDV IV PRN (15:36)
[2022-02-20] MEDS ORDERED: guaiFENesin/Dextromethorphan 100-10 MG/5 ML Soln 10 ML Cup PO PRN (15:36)
[2022-02-20] MEDS ORDERED: Ibuprofen 600 MG Tab PO PRN (15:36)
[2022-02-20] MEDS ORDERED: Albuterol 0.083% 2.5 MG/3 ML Neb Soln NEB PRN (15:36)
[2022-02-20] MEDS ORDERED: Non-Formulary Medication 1 Each (Meclizine [Antivert] 25 MG Tab.Chew) PO PRN (15:36)
[2022-02-20] MEDS ORDERED: Benzonatate 100 MG Cap PO PRN (15:36)
[2022-02-20] MEDS ORDERED: Meclizine 25 MG Tab PO PRN (16:30)
[2022-02-20] MEDS: Sodium Chloride 0.9% 1,000 ML IV SCH (16:36)
[2022-02-20] MEDS: Latanoprost 0.005% Ophth Soln 2.5 ML Bottle EYEBOTH SCH (21:21)
[2022-02-20] MEDS: Melatonin 3 MG Tab PO SCH (21:21)
[2022-02-21] MEDS: Acetaminophen 325 MG Tab PO PRN ×2 (02:51→22:57)
[2022-02-21] MEDS: Sodium Chloride 0.9% 1,000 ML IV SCH (02:52)
[2022-02-21] MEDS: Aspirin 81 MG Tab.EC PO SCH (08:05)
[2022-02-21] MEDS: atorvaSTATin 10 MG Tab PO SCH (08:05)
[2022-02-21] MEDS: Pantoprazole 40 MG Tab.CR PO SCH (08:05)
[2022-02-21] MEDS: predniSONE 1 MG Tab PO SCH (08:06)
[2022-02-21] MEDS ORDERED: Non-Formulary Medication 1 Each (Lovastatin [Mevacor] 40 MG Tablet) PO SCH (09:00)
[2022-02-21] MEDS ORDERED: OMEPRAZOLE 40 MG PO SCH (09:00)
[2022-02-21] MEDS ORDERED: PREDNISONE 1 MG PO SCH (09:00)
[2022-02-21] MEDS ORDERED: Non-Formulary Medication 1 Each (Aspirin [Adult Low Dose Aspirin Ec] 81 MG Tablet.Dr) PO SCH (09:00)
[2022-02-21] MEDS: Latanoprost 0.005% Ophth Soln 2.5 ML Bottle EYEBOTH SCH (20:03)
[2022-02-21] MEDS: Melatonin 3 MG Tab PO SCH (20:03)
[2022-02-22] MEDS: Pantoprazole 40 MG Tab.CR PO SCH (08:31)
[2022-02-22] MEDS: atorvaSTATin 10 MG Tab PO SCH (08:31)
[2022-02-22] MEDS: Aspirin 81 MG Tab.EC PO SCH (08:31)
[2022-02-22] MEDS: predniSONE 1 MG Tab PO SCH (08:31)
[2022-02-22] MEDS: Melatonin 3 MG Tab PO SCH (22:07)
[2022-02-22] MEDS: Latanoprost 0.005% Ophth Soln 2.5 ML Bottle EYEBOTH SCH (22:07)
[2022-02-23] MEDS: Pantoprazole 40 MG Tab.CR PO SCH (07:24)
[2022-02-23] MEDS: atorvaSTATin 10 MG Tab PO SCH (09:08)
[2022-02-23] MEDS: predniSONE 1 MG Tab PO SCH (09:08)
[2022-02-23] MEDS: Aspirin 81 MG Tab.EC PO SCH (09:08)
[2022-02-23 11:01] VITALS: BP 134/52; PULSE 81
== END 2022-02-23 12:30 | disposition home health service (06) ==
LOC: JP.ED 10:14 → JP.MS 15:17
PROVIDERS: ADMIT Internal Medicine; ATTEND Internal Medicine
DX: J21.0 Acute bronchiolitis due to respiratory syncytial virus (principal); R53.1 Weakness; E78.00 Pure hypercholesterolemia, unspecified; K21.9 Gastro-esophageal reflux disease without esophagitis; M81.0 Age-related osteoporosis without current pathological fracture; J44.9 Chronic obstructive pulmonary disease, unspecified; F17.210 Nicotine dependence, cigarettes, uncomplicated; Z79.899 Other long term (current) drug therapy; Z79.82 Long term (current) use of aspirin; Z88.0 Allergy status to penicillin; Z91.041 Radiographic dye allergy status; Z79.01 Long term (current) use of anticoagulants; Z98.890 Other specified postprocedural states; Z20.822 Contact with and (suspected) exposure to COVID-19
CPT/HCPCS: 0241U; 36415; 71045; 80053; 81001; 83605; 84145; 85025; 96360; 96361; 97110; 97161; 97530; 99285; A9270; G0378; J3490; J7030; J7512

== ENCOUNTER 2022-10-29 05:55 | Inpatient (IN) | payer MEDICARE ==
[2022-10-29 06:40] LABS: BASOPHILS PERCENT AUTO 0.4 % (0.1-1.3); EOSINOPHILS ABSOLUTE AUTO 0.04 K/uL (0.00-0.40); EOSINOPHILS PERCENT AUTO 0.8 % (0.0-5.4); HEMATOCRIT 36.4 % (34.3-46.0); HEMOGLOBIN 12.2 g/dL (11.2-15.5); IMMATURE GRAN PERCENT AUTO 0.4 % (0.0-0.7); LYMPHOCYTES ABSOLUTE AUTO 1.15 K/uL (0.8-3.3); LYMPHOCYTES PERCENT AUTO 23.6 % (11.4-47.7); MEAN CORPUSCULAR HEMOGLOBIN 31.6 pg (31.6-35.5); MEAN CORPUSCULAR HGB CONC 33.5 g/dL (31.6-35.5); MEAN CORPUSCULAR VOLUME 94.3 fL (81.4-99.0); MONOCYTES ABSOLUTE AUTO 0.41 K/uL (0.20-0.90); MONOCYTES PERCENT AUTO 8.4 % (3.3-12.6); NEUTROPHILS ABSOLUTE AUTO 3.24 K/uL (1.0-7.6); NEUTROPHILS PERCENT AUTO 66.4 % (40.0-78.1); PLATELET COUNT,PLT 162 K/uL (130-375); RED BLOOD CELL COUNT 3.86 M/uL (3.77-5.24); WHITE BLOOD CELL COUNT,WBC 4.9 K/uL (3.2-11.0)
[2022-10-29 06:42] LABS: BASOPHILS ABSOLUTE AUTO 0.02 K/uL (0.00-0.10); IMMATURE GRAN ABSOLUTE AUTO 0.02 K/uL (0.00-0.23)
[2022-10-29 07:12] LABS: APPEARANCE,URINE CLOUDY (CLEAR); BILIRUBIN,URINE NEGATIVE (NEGATIVE); COLOR,URINE YELLOW (YELLOW); GLUCOSE,URINE NEGATIVE (NEGATIVE); KETONES,URINE NEGATIVE (NEGATIVE); LEUKOCYTE ESTERASE,URINE TRACE (NEGATIVE); NITRITE,URINE POSITIVE (NEGATIVE); OCCULT BLOOD,URINE SMALL (NEGATIVE); PROTEIN,URINE NEGATIVE (NEGATIVE); UROBILINOGEN,URINE 0.2 EU/dL (0.2-1.0)
[2022-10-29 07:22] LABS: AMORPHOUS SEDIMENT,URINE NOT SEEN; BACTERIA,URINE MANY; EPITHELIAL CELLS,URINE RARE; MUCUS,URINE FEW; RBC,URINE 0-5 (0-5)
[2022-10-29 07:37] LABS: A/G RATIO 1.1 (1.2-2.2); ALANINE AMINOTRANSFERASE,ALT 16 U/L (12-78); ALBUMIN 3.3 g/dL (3.4-5.0); ALKALINE PHOSPHATASE 74 U/L (46-116); ASPARTATE AMNIOTRANSFERASE,AST 24 U/L (15-37); BILIRUBIN TOTAL 0.4 mg/dL (0.2-1.0); BLOOD UREA NITROGEN,BUN 8 mg/dL (7-18); C-REACTIVE PROTEIN 0.19 mg/dL (0.0-0.3); CALCIUM 8.7 mg/dL (8.5-10.1); CARBON DIOXIDE,CO2 26 mmol/L (21-32); CHLORIDE,CL 93 mmol/L (100-108); CREATININE 0.8 mg/dL (0.6-1.0); ESTIMATED GFR 71 mL/min (>60); GLUCOSE RANDOM 89 mg/dL (74-106); PROTEIN TOTAL,TP 6.4 g/dL (6.4-8.2); SODIUM,NA 127 mmol/L (140-148)
[2022-10-29] MEDS ORDERED: cefTRIAXone 1 GM in Sodium Chloride 0.9% 50 ML IV ONE (07:53)
[2022-10-29] MEDS ORDERED: Sodium Chloride 0.9% 1,000 ML IV SCH ×2 (08:00→12:59)
[2022-10-29] MEDS ORDERED: Sodium Chloride 0.9% 10 ML Syringe FLUSH PRN (12:59)
[2022-10-29] MEDS ORDERED: Polyethylene Glycol 3350 Powder 17 GM Packet PO PRN (12:59)
[2022-10-29] MEDS ORDERED: Ondansetron 4 MG/2 ML SDV IV PRN (12:59)
[2022-10-29] MEDS ORDERED: Albuterol/Ipratropium 3.0-0.5 MG/3 ML Neb Soln NEB PRN (12:59)
[2022-10-29] MEDS ORDERED: LORazepam 0.5 MG Tab PO PRN (12:59)
[2022-10-29] MEDS ORDERED: Acetaminophen 325 MG Tab PO PRN (12:59)
[2022-10-29] MEDS ORDERED: Albuterol 6.7 GM Inhaler INH SCH (13:00)
[2022-10-29] MEDS ORDERED: Albuterol 6.7 GM Inhaler INH PRN (13:16)
[2022-10-29] MEDS: Enoxaparin 40 MG/0.4 ML Syringe SUBCUT SCH (13:28)
[2022-10-29] MEDS ORDERED: Hydrocortisone Sodium Succinate 100 MG/2 ML SDV IVPUSH ONE (14:30)
[2022-10-29] MEDS: Latanoprost 0.005% Ophth Soln 2.5 ML Bottle EYEBOTH SCH (20:02)
[2022-10-30 04:37] LABS: HEMOGLOBIN 11.8 g/dL (11.2-15.5); MEAN CORPUSCULAR HEMOGLOBIN 31.6 pg (31.6-35.5); MEAN CORPUSCULAR HGB CONC 33.7 g/dL (31.6-35.5); MEAN CORPUSCULAR VOLUME 93.6 fL (81.4-99.0); RED BLOOD CELL COUNT 3.74 M/uL (3.77-5.24); WHITE BLOOD CELL COUNT,WBC 5.2 K/uL (3.2-11.0)
[2022-10-30 04:53] LABS: CREATININE 0.8 mg/dL (0.6-1.0); EST CRCL DRUG DOSING (CG) 36.54 mL/min; MAGNESIUM 1.6 mg/dL (1.8-2.4); POTASSIUM,K 4.2 mmol/L (3.6-5.2)
[2022-10-30 05:06] LABS: ANION GAP 13.2 mmol/L (5.0-14.0)
[2022-10-30] MEDS: Pantoprazole 40 MG Tab.CR PO SCH (07:37)
[2022-10-30] MEDS: Aspirin 81 MG Tab.EC PO SCH ×2 (07:37→09:21)
[2022-10-30] MEDS: atorvaSTATin 10 MG Tab PO SCH ×2 (07:37→09:21)
[2022-10-30] MEDS: Enoxaparin 40 MG/0.4 ML Syringe SUBCUT SCH ×2 (07:37→09:21)
[2022-10-30] MEDS ORDERED: predniSONE 5 MG Tab PO SCH (09:00)
[2022-10-30] MEDS ORDERED: cefTRIAXone 1 GM in Sodium Chloride 0.9% 50 ML IV SCH (10:00)
[2022-10-30] MEDS: Latanoprost 0.005% Ophth Soln 2.5 ML Bottle EYEBOTH SCH (20:23)
[2022-10-31] MEDS: atorvaSTATin 10 MG Tab PO SCH (08:28)
[2022-10-31] MEDS: Aspirin 81 MG Tab.EC PO SCH (08:29)
[2022-10-31] MEDS: Pantoprazole 40 MG Tab.CR PO SCH (08:29)
[2022-10-31] MEDS ORDERED: Cephalexin 250 MG Cap PO SCH (09:00)
[2022-10-31] MEDS ORDERED: predniSONE 5 MG Tab PO SCH (09:00)
[2022-10-31] MEDS: Enoxaparin 40 MG/0.4 ML Syringe SUBCUT SCH (09:54)
[2022-10-31 11:38] VITALS: BP 165/66; PULSE 81
== END 2022-10-31 13:40 | disposition home or self-care (01) | DRG 690 ==
LOC: JP.ED 05:55 → JP.MS 11:20
PROVIDERS: ADMIT Hospitalist; ATTEND Internal Medicine
DX: N30.01 Acute cystitis with hematuria (principal); E87.1 Hypo-osmolality and hyponatremia; E27.40 Unspecified adrenocortical insufficiency; E86.0 Dehydration; Z20.822 Contact with and (suspected) exposure to COVID-19; J44.9 Chronic obstructive pulmonary disease, unspecified; E78.00 Pure hypercholesterolemia, unspecified; F17.210 Nicotine dependence, cigarettes, uncomplicated; M81.0 Age-related osteoporosis without current pathological fracture; K21.9 Gastro-esophageal reflux disease without esophagitis; Z88.0 Allergy status to penicillin; Z91.041 Radiographic dye allergy status; Z88.8 Allergy status to other drugs, medicaments and biological substances; Z79.01 Long term (current) use of anticoagulants; Z98.49 Cataract extraction status, unspecified eye; Z98.890 Other specified postprocedural states; Z79.82 Long term (current) use of aspirin; Z79.899 Other long term (current) drug therapy
CPT/HCPCS: 36415; 70450; 80053; 80307; 81001; 83605; 84295; 85025; 86140; 87086; 87088; 87186; J0696; J3490; J7030; U0002; 80048; 83735; 85027; 97161-GP; 99222; 99232; 99238; A9270-GY; J1650; J1720; J7512

== ENCOUNTER 2023-02-03 10:43 | Inpatient (IN) | payer MEDICARE ==
[2023-02-03] MEDS ORDERED: Sodium Chloride 0.9% 1,000 ML IV SCH ×3 (12:30→17:14)
[2023-02-03] MEDS ORDERED: Sodium Chloride 0.9% 50 ML IV ONE (12:33)
[2023-02-03] MEDS ORDERED: Sodium Chloride 0.9% 10 ML Syringe FLUSH ONE (12:33)
[2023-02-03] MEDS ORDERED: diphenhydrAMINE 50 MG/ML SDV IVPUSH ONE (12:42)
[2023-02-03] MEDS ORDERED: Iopamidol 612 MG/ML 100 ML Bottle IV SCH (12:45)
[2023-02-03 12:48] LABS: HEMATOCRIT 35.4 % (34.3-46.0); MEAN CORPUSCULAR HEMOGLOBIN 31.2 pg (31.6-35.5); MEAN CORPUSCULAR HGB CONC 33.9 g/dL (31.6-35.5); MEAN CORPUSCULAR VOLUME 91.9 fL (81.4-99.0); PLATELET COUNT,PLT 203 K/uL (130-375); RED BLOOD CELL COUNT 3.85 M/uL (3.77-5.24); WHITE BLOOD CELL COUNT,WBC 15.6 K/uL (3.2-11.0)
[2023-02-03 13:04] LABS: BAND ABSOLUTE MAN 1.56 K/uL; BAND PERCENT MAN 10 % (5-11); LYMPHOCYTES ABSOLUTE MAN 0.31 K/uL (0.8-3.3); LYMPHOCYTES PERCENT MAN 2 % (24-44); MONOCYTES ABSOLUTE MAN 0.47 K/uL (0.20-0.90); MONOCYTES PERCENT MAN 3 % (2-6); NEUTROPHILS ABSOLUTE MAN 13.26 K/uL (1.0-7.6); SEG NEUTROPHILS PERCENT MAN 85 % (36-66)
[2023-02-03 13:10] LABS: A/G RATIO 0.7 (1.2-2.2); ALANINE AMINOTRANSFERASE,ALT 19 U/L (12-78); ALBUMIN 2.9 g/dL (3.4-5.0); ALKALINE PHOSPHATASE 125 U/L (46-116); ASPARTATE AMNIOTRANSFERASE,AST 25 U/L (15-37); BILIRUBIN TOTAL 0.7 mg/dL (0.2-1.0); BLOOD UREA NITROGEN,BUN 21 mg/dL (7-18); CARBON DIOXIDE,CO2 23 mmol/L (21-32); CHLORIDE,CL 92 mmol/L (100-108); EST CRCL DRUG DOSING (CG) 29.52 mL/min; ESTIMATED GFR 54 mL/min (>60); GLUCOSE RANDOM 51 mg/dL (74-106); POTASSIUM,K 4.2 mmol/L (3.6-5.2); PROTEIN TOTAL,TP 6.8 g/dL (6.4-8.2); SODIUM,NA 127 mmol/L (140-148)
[2023-02-03 13:12] LABS: ANION GAP 16.2 mmol/L (5.0-14.0)
[2023-02-03 15:00] LABS: APPEARANCE,URINE SLIGHTLY CLOUDY (CLEAR); BILIRUBIN,URINE NEGATIVE (NEGATIVE); COLOR,URINE YELLOW (YELLOW); GLUCOSE,URINE NEGATIVE (NEGATIVE); KETONES,URINE 15 mg/dL (NEGATIVE); LEUKOCYTE ESTERASE,URINE TRACE (NEGATIVE); NITRITE,URINE NEGATIVE (NEGATIVE); OCCULT BLOOD,URINE TRACE-INTACT (NEGATIVE); PROTEIN,URINE 100 mg/dL (NEGATIVE)
[2023-02-03 15:06] LABS: AMORPHOUS SEDIMENT,URINE NOT SEEN; BACTERIA,URINE MODERATE; EPITHELIAL CELLS,URINE MANY; MUCUS,URINE RARE; WBC,URINE 20-30 (0-5)
[2023-02-03] MEDS ORDERED: cefTRIAXone 1 GM in Sodium Chloride 0.9% 50 ML IV ONE ×2 (16:14→18:00)
[2023-02-03] MEDS ORDERED: Azithromycin 500 MG in Sodium Chloride 0.9% 250 ML IV SCH ×5 (16:15→18:30)
[2023-02-03 16:39] LABS: CORONAVIRUS COVID-19 NAA NEGATIVE (NEGATIVE); INFLUENZA A NAA NEGATIVE (NEGATIVE); INFLUENZA B NAA NEGATIVE (NEGATIVE); RESPIRATORY SYNCYTIAL VIR NAA NEGATIVE (NEGATIVE)
[2023-02-03 16:40] LABS: BICARBONATE,ARTERIAL 20.7 mmol/L (22.0-26.0); CARBOXYHEMOGLOBIN 1.9 % (0.0-1.6); METHEMOGLOBIN 0.7 %; OXYHEMOGLOBIN 90.6 %; PCO2 ARTERIAL 29.8 mmHg (35.0-42.0); PO2 ARTERIAL 63.4 mmHg (75.0-100.0); TOTAL HEMOGLOBIN 11.3 g/dL (12.0-16.0)
[2023-02-03] MEDS ORDERED: oxyCODONE 5 MG Tab PO PRN (17:14)
[2023-02-03] MEDS ORDERED: Albuterol/Ipratropium 3.0-0.5 MG/3 ML Neb Soln NEB PRN (17:14)
[2023-02-03] MEDS ORDERED: Albuterol 0.083% 2.5 MG/3 ML Neb Soln NEB PRN (17:14)
[2023-02-03] MEDS ORDERED: Triamcinolone Acetonide 0.1% Crm 80 GM Tube TOP PRN (17:14)
[2023-02-03] MEDS ORDERED: Sodium Chloride 0.9% 10 ML Syringe FLUSH PRN (17:14)
[2023-02-03] MEDS ORDERED: Promethazine 25 MG Tab PO PRN (17:14)
[2023-02-03] MEDS ORDERED: Polyethylene Glycol 3350 Powder 17 GM Packet PO PRN (17:14)
[2023-02-03] MEDS: Acetaminophen 325 MG Tab PO PRN (18:53)
[2023-02-03] MEDS ORDERED: Latanoprost 0.005% Ophth Soln 2.5 ML Bottle EYEBOTH SCH (21:00)
[2023-02-03] MEDS: Enoxaparin 30 MG/0.3 ML Syringe SUBCUT SCH (21:25)
[2023-02-04 06:13] LABS: HEMATOCRIT 31.2 % (34.3-46.0); HEMOGLOBIN 10.8 g/dL (11.2-15.5); MEAN CORPUSCULAR HEMOGLOBIN 31.9 pg (31.6-35.5); MEAN CORPUSCULAR HGB CONC 34.6 g/dL (31.6-35.5); RED BLOOD CELL COUNT 3.39 M/uL (3.77-5.24); WHITE BLOOD CELL COUNT,WBC 15.7 K/uL (3.2-11.0)
[2023-02-04 06:23] LABS: CALCIUM 8.1 mg/dL (8.5-10.1); CREATININE 0.9 mg/dL (0.6-1.0); EST CRCL DRUG DOSING (CG) 34.17 mL/min; MAGNESIUM 1.7 mg/dL (1.8-2.4); POTASSIUM,K 4.1 mmol/L (3.6-5.2)
[2023-02-04 06:33] LABS: ANION GAP 16.1 mmol/L (5.0-14.0)
[2023-02-04] MEDS: atorvaSTATin 10 MG Tab PO SCH (08:16)
[2023-02-04] MEDS: Pantoprazole 40 MG Tab.CR PO SCH (08:16)
[2023-02-04] MEDS: Aspirin 81 MG Tab.EC PO SCH (08:16)
[2023-02-04] MEDS ORDERED: Aspirin 81 MG Tab.EC PO SCH (09:00)
[2023-02-04] MEDS ORDERED: Pantoprazole 40 MG Tab.CR PO SCH (09:00)
[2023-02-04] MEDS: cefTRIAXone 1 GM in Sodium Chloride 0.9% 50 ML IV SCH (15:33)
[2023-02-04] MEDS ORDERED: Azithromycin 500 MG in Sodium Chloride 0.9% 250 ML IV SCH (17:00)
[2023-02-04] MEDS: Latanoprost 0.005% Ophth Soln 2.5 ML Bottle EYEBOTH SCH (20:48)
[2023-02-04] MEDS: Enoxaparin 30 MG/0.3 ML Syringe SUBCUT SCH (20:48)
[2023-02-05] MEDS: Acetaminophen 325 MG Tab PO PRN (03:14)
[2023-02-05] MEDS: Pantoprazole 40 MG Tab.CR PO SCH (07:48)
[2023-02-05] MEDS: atorvaSTATin 10 MG Tab PO SCH (10:09)
[2023-02-05] MEDS: Aspirin 81 MG Tab.EC PO SCH (10:09)
[2023-02-05] MEDS: cefTRIAXone 1 GM in Sodium Chloride 0.9% 50 ML IV SCH (16:26)
[2023-02-05] MEDS: Azithromycin 250 MG Tab PO SCH (17:45)
[2023-02-05] MEDS: Enoxaparin 40 MG/0.4 ML Syringe SUBCUT SCH (20:07)
[2023-02-05] MEDS: Latanoprost 0.005% Ophth Soln 2.5 ML Bottle EYEBOTH SCH (20:07)
[2023-02-06 04:52] LABS: HEMATOCRIT 30.7 % (34.3-46.0); HEMOGLOBIN 10.5 g/dL (11.2-15.5); MEAN CORPUSCULAR HEMOGLOBIN 30.9 pg (31.6-35.5); MEAN CORPUSCULAR HGB CONC 34.2 g/dL (31.6-35.5); MEAN CORPUSCULAR VOLUME 90.3 fL (81.4-99.0); RED BLOOD CELL COUNT 3.4 M/uL (3.77-5.24); WHITE BLOOD CELL COUNT,WBC 8.7 K/uL (3.2-11.0)
[2023-02-06 05:10] LABS: CALCIUM 8.3 mg/dL (8.5-10.1); CREATININE 0.9 mg/dL (0.6-1.0); EST CRCL DRUG DOSING (CG) 34.1 mL/min; POTASSIUM,K 3.9 mmol/L (3.6-5.2)
[2023-02-06 05:25] LABS: ANION GAP 13.9 mmol/L (5.0-14.0)
[2023-02-06] MEDS: atorvaSTATin 10 MG Tab PO SCH (08:36)
[2023-02-06] MEDS: Aspirin 81 MG Tab.EC PO SCH (08:36)
[2023-02-06] MEDS: Pantoprazole 40 MG Tab.CR PO SCH (08:36)
[2023-02-06] MEDS: cefTRIAXone 1 GM in Sodium Chloride 0.9% 50 ML IV SCH (16:05)
[2023-02-06] MEDS: Azithromycin 250 MG Tab PO SCH (16:05)
[2023-02-06] MEDS: Enoxaparin 40 MG/0.4 ML Syringe SUBCUT SCH (20:31)
[2023-02-06] MEDS: Latanoprost 0.005% Ophth Soln 2.5 ML Bottle EYEBOTH SCH (20:31)
[2023-02-06] MEDS: Acetaminophen 325 MG Tab PO PRN (21:48)
[2023-02-07] MEDS: atorvaSTATin 10 MG Tab PO SCH (09:47)
[2023-02-07] MEDS: Aspirin 81 MG Tab.EC PO SCH (09:47)
[2023-02-07] MEDS: Pantoprazole 40 MG Tab.CR PO SCH (09:47)
[2023-02-07] MEDS: Cefdinir 300 MG Cap PO SCH ×2 (09:47→20:37)
[2023-02-07] MEDS: Azithromycin 250 MG Tab PO SCH (17:13)
[2023-02-07] MEDS: Latanoprost 0.005% Ophth Soln 2.5 ML Bottle EYEBOTH SCH (20:30)
[2023-02-07] MEDS: Acetaminophen 325 MG Tab PO PRN (20:31)
[2023-02-07] MEDS: Enoxaparin 40 MG/0.4 ML Syringe SUBCUT SCH (20:31)
[2023-02-08] MEDS: Pantoprazole 40 MG Tab.CR PO SCH (07:24)
[2023-02-08] MEDS: atorvaSTATin 10 MG Tab PO SCH (08:19)
[2023-02-08] MEDS: Cefdinir 300 MG Cap PO SCH (08:20)
[2023-02-08] MEDS: Aspirin 81 MG Tab.EC PO SCH (08:20)
[2023-02-08 11:21] VITALS: BP 122/44; PULSE 82
== END 2023-02-08 14:20 | disposition home health service (06) | DRG 871 ==
LOC: JP.ED 10:43 → JP.MS 16:31 → UNDODISIN 02-04 21:08
PROVIDERS: ADMIT Hospitalist; ATTEND Internal Medicine
DX: A41.9 Sepsis, unspecified organism (principal); J18.9 Pneumonia, unspecified organism; J96.01 Acute respiratory failure with hypoxia; S22.060A Wedge compression fracture of T7-T8 vertebra, initial encounter for closed fracture; J44.0 Chronic obstructive pulmonary disease with (acute) lower respiratory infection; N30.01 Acute cystitis with hematuria; Z66 Do not resuscitate; R65.20 Severe sepsis without septic shock; H40.9 Unspecified glaucoma; H35.30 Unspecified macular degeneration; E78.00 Pure hypercholesterolemia, unspecified; J44.9 Chronic obstructive pulmonary disease, unspecified; G89.29 Other chronic pain; M54.9 Dorsalgia, unspecified; M81.0 Age-related osteoporosis without current pathological fracture; W18.30XA Fall on same level, unspecified, initial encounter; Z79.01 Long term (current) use of anticoagulants; K21.9 Gastro-esophageal reflux disease without esophagitis; F17.210 Nicotine dependence, cigarettes, uncomplicated; Z87.891 Personal history of nicotine dependence; Z86.73 Personal history of transient ischemic attack (TIA), and cerebral infarction without residual deficits; Z91.041 Radiographic dye allergy status; Z88.0 Allergy status to penicillin; Z98.49 Cataract extraction status, unspecified eye; Z98.890 Other specified postprocedural states; Z79.82 Long term (current) use of aspirin; Z79.899 Other long term (current) drug therapy; Z20.822 Contact with and (suspected) exposure to COVID-19
CPT/HCPCS: 0241U; 36415; 36600; 71260; 74177; 80048; 80053; 81001; 82803; 82947; 83605; 83735; 84484; 85025; 85027; 87040; 87086; 93005; 96365; 97161; 97530; 99285; 93010; A9270-GY; J0456; J0696; J1650; J3490; J7030; J7050; Q9967

== ENCOUNTER 2024-06-20 19:50 | Emergency (ER) | payer MEDICARE, BC ==
[2024-06-20 21:01] LABS: BASOPHILS PERCENT AUTO 0.2 % (0.1-1.3); EOSINOPHILS ABSOLUTE AUTO 0.06 K/uL (0.00-0.40); HEMATOCRIT 30.9 % (34.3-46.0); HEMOGLOBIN 9.7 g/dL (11.2-15.5); IMMATURE GRAN PERCENT AUTO 0.3 % (0.0-0.7); LYMPHOCYTES ABSOLUTE AUTO 1.07 K/uL (0.8-3.3); LYMPHOCYTES PERCENT AUTO 17.1 % (11.4-47.7); MEAN CORPUSCULAR HGB CONC 31.4 g/dL (31.6-35.5); MEAN CORPUSCULAR VOLUME 95.7 fL (81.4-99.0); MONOCYTES ABSOLUTE AUTO 0.43 K/uL (0.20-0.90); MONOCYTES PERCENT AUTO 6.9 % (3.3-12.6); NEUTROPHILS ABSOLUTE AUTO 4.66 K/uL (1.0-7.6); NEUTROPHILS PERCENT AUTO 74.5 % (40.0-78.1); PLATELET COUNT,PLT 193 K/uL (130-375); RED BLOOD CELL COUNT 3.23 M/uL (3.77-5.24); WHITE BLOOD CELL COUNT,WBC 6.3 K/uL (3.2-11.0)
[2024-06-20 21:03] LABS: BASOPHILS ABSOLUTE AUTO 0.01 K/uL (0.00-0.10); IMMATURE GRAN ABSOLUTE AUTO 0.02 K/uL (0.00-0.23)
[2024-06-20 21:17] LABS: CALCIUM 10.9 mg/dL (8.5-10.1); CREATININE 1.1 mg/dL (0.6-1.0); EST CRCL DRUG DOSING (CG) 23.34 mL/min; POTASSIUM,K 4.6 mmol/L (3.6-5.2)
[2024-06-20 21:18] LABS: ANION GAP 13.6 mmol/L (5.0-14.0)
[2024-06-20 21:38] VITALS: BP 146/58; PULSE 73
== END 2024-06-20 21:50 | disposition home or self-care (01) ==
LOC: JP.ED 19:50
DX: R55 Syncope and collapse (principal); E78.00 Pure hypercholesterolemia, unspecified; J44.9 Chronic obstructive pulmonary disease, unspecified; K21.9 Gastro-esophageal reflux disease without esophagitis; Z88.1 Allergy status to other antibiotic agents; Z91.041 Radiographic dye allergy status; Z79.899 Other long term (current) drug therapy; Z79.51 Long term (current) use of inhaled steroids; Z86.16 Personal history of COVID-19; Z87.891 Personal history of nicotine dependence
CPT/HCPCS: 36415; 80048; 83605; 85025; 99284

== ENCOUNTER 2024-09-02 23:50 | Emergency (ER) | payer MEDICARE, BC ==
[2024-09-03 01:31] LABS: BASOPHILS PERCENT AUTO 0.2 % (0.1-1.3); EOSINOPHILS ABSOLUTE AUTO 0.03 K/uL (0.00-0.40); EOSINOPHILS PERCENT AUTO 0.4 % (0.0-5.4); IMMATURE GRAN ABSOLUTE AUTO 0.03 K/uL (0.00-0.23); IMMATURE GRAN PERCENT AUTO 0.4 % (0.0-0.7); LYMPHOCYTES ABSOLUTE AUTO 1.04 K/uL (0.8-3.3); LYMPHOCYTES PERCENT AUTO 12.9 % (11.4-47.7); MONOCYTES ABSOLUTE AUTO 0.46 K/uL (0.20-0.90); MONOCYTES PERCENT AUTO 5.7 % (3.3-12.6); NEUTROPHILS ABSOLUTE AUTO 6.46 K/uL (1.0-7.6); NEUTROPHILS PERCENT AUTO 80.4 % (40.0-78.1); PLATELET COUNT,PLT 217 K/uL (130-375); RED BLOOD CELL COUNT 3.50 M/uL (3.77-5.24); WHITE BLOOD CELL COUNT,WBC 8.0 K/uL (3.2-11.0)
[2024-09-03 01:55] LABS: BASOPHILS ABSOLUTE AUTO 0.02 K/uL (0.00-0.10)
[2024-09-03 04:13] VITALS: PULSE 82
[2024-09-03 06:40] VITALS: BP 115/60
== END 2024-09-03 09:15 | disposition home or self-care (01) ==
LOC: JP.ED 23:50
DX: S01.01XA Laceration without foreign body of scalp, initial encounter (principal); E78.00 Pure hypercholesterolemia, unspecified; J44.9 Chronic obstructive pulmonary disease, unspecified; K21.9 Gastro-esophageal reflux disease without esophagitis; Z88.0 Allergy status to penicillin; Z91.041 Radiographic dye allergy status; Z79.899 Other long term (current) drug therapy; Z86.73 Personal history of transient ischemic attack (TIA), and cerebral infarction without residual deficits; Z87.891 Personal history of nicotine dependence; W07.XXXA Fall from chair, initial encounter; Y93.89 Activity, other specified
CPT/HCPCS: 12001; 36415; 70450; 72125; 73080-26-LT; 73080-LT; 73521; 73521-26; 76377; 85025; 99285